=== PATIENT | male | born 1980 | race Two or more races ===

== ENCOUNTER 2025-03-14 00:31 | Emergency (ER) | payer OTHER ==
[~2025-03-14] VITALS: Ht 167.6 cm; Wt 74.8 kg
[2025-03-14 00:37] VITALS: BP 143/89; TEMP 98.6; O2SAT 98
== END 2025-03-14 05:46 ==
LOC: ER 00:34
DX: Z02.89 Encounter for other administrative examinations (principal); Z65.3 Problems related to other legal circumstances